=== PATIENT | male | born 1960 | race Two or more races ===

== ENCOUNTER 2024-11-09 15:23 | Emergency (ER) | payer OTHER ==
[~2024-11-09] VITALS: Ht 165.1 cm; Wt 70.8 kg
[2024-11-09 16:37] VITALS: BP 137/80; PULSE 94; RESP 18; TEMP 98.9; O2SAT 96
--- NOTE | 2024-11-09 16:39 | ED.PDOC ---
Musculoskeletal HPI Comments THIS IS A 64 YEAR-OLD MALE WHO PRESENTS TO THE ED VIA WHEELCHAIR WITH A CHIEF COMPLAINT OF LOWER BACK PAIN THAT RADIATES DOWN BILATERAL LEGS. PATIENT STATES HE HAS A HISTORY OF CHRONIC LOWER BACK PAIN AND NOTES IT HAS BEEN WORSE OVER THE PAST 2 DAYS. PATIENT REPORTS HIS PAIN RADIATES DOWN HIS BILATERAL LEGS AND NOTES HIS RIGHT LEG IS WORSE THAN HIS LEFT. PATIENT DENIES SADDLE ANESTHESIA, URINARY INCONTINENCE, BOWEL INCONTINENCE, FURTHER SYMPTOMS OF HEADACHE, N/V, FEVER, CHILLS, OR WEAKNESS. PATIENT IS ALERT, ORIENTED X 4, AND HAS STEADY GAIT. Chief Complaint: Lower Extremity Time Seen by MD: 16:16 Primary Care Provider: CHRISTEL Reviewed Notes: Nurses Notes, Medications, Allergies Allergies: Coded Allergies: NO KNOWN ALLERGIES (Unverified , 10/22/11) Home Meds Active Scripts Tramadol HCl (Tramadol HCl) 50 Mg Tab, 50 MG PO TID, #20 TAB Prov:MARLEEN RODRIUGEZ 11/09/24 Information Source: Patient Mode of Arrival: Ambulatory Location: Bilateral Extremity Location: Back, Leg Timing: Days Prehospital treatment: None Severity: Moderate Able to Move Extremity: Yes Bear Weight: Fully Pain: Moderate Onset of Symptoms: Spontaneous Symptoms: Pain Associated signs and symptoms: Back pain, Other (BILATERAL LEG PAIN, TINGLING SENSATION ) Past Medical History PAST MEDICAL HISTORY: DM, HTN Past Medical History (Other): CHRONIC LOWER BACK PAIN Surgical History: Denies all surgeries Family History Family History: Reviewed,noncontributory to illness, Unknown Social History Smoker: Cigarettes Alcohol: Occasionally Drugs: Marijuana Lives In: Home Constitutional: denies: chills, diaphoresis, fatigue, fever, malaise, sweats, weakness, others EENTM: denies: blurred vision, double vision, ear bleeding, ear discharge, ear drainage, ear pain, ear ringing, eye pain, eye redness, hearing loss, mouth pain, mouth swelling, nasal discharge, nose bleeding, nose congestion, nose pain, photophobia, tearing, throat pain, throat swelling, voice changes, others Respiratory: denies: cough, hemoptysis, orthopnea, SOB at rest, shortness of breath, SOB with excertion, stridor, wheezing, others Cardiovascular: denies: chest pain, dizzy spells, diaphoresis, Dyspnea on exertion, edema, irregular heart beat, left arm pain, lightheadedness, palpitations, PND, syncope, others Gastrointestinal: denies: abdomen distended, abdominal pain, blood streaked bowels, constipated, diarrhea, dysphagia, difficulty swallowing, hematemesis, melena, nausea, poor appetite, poor fluid intake, rectal bleeding, rectal pain, vomiting, others Genitourinary: denies: burning, dysuria, flank pain, frequency, hematuria, incontinence, penile discharge, penile sore, pain, testicle pain, testicle swelling, urgency, others Neurological: reports: others (BILATERAL LEG TINGLING AND BURNING SENSATION); denies: dizziness, fainting, headache, left sided numbness, left sided weakness, numbness, paresthesia, pre-existing deficit, right sided numbness, right sided weakness, seizure, speech problems, tingling, tremors, weakness Musculoskeletal: reports: back pain, muscle pain; denies: gout, joint pain, joint swelling, muscle stiffness, neck pain, others Integumetry: denies: bruises, change in color, change in hair/nails, dryness, laceration, lesions, lumps, rash, wounds, others Allergic/Immunocompromised: denies: Difficulty Healing, Frequent Infections, Hives, Itching, others Hematologic/Lymphatic: denies: anemia, blood clots, easy bleeding, easy bruising, swollen glands, others Endocrine: denies: excessive hunger, excessive sweating, excessive thirst, excessive urination, flushing, intolerance to cold, intolerance to heat, unexplained weight gain, unexplained weight loss, others Psychiatric: denies: anxiety, bipolar disorder, depression, hopeless, panic disorder, schizophrenia, sleepless, suicidal, others All Other Systems: Reviewed and Negative Physical Exam General Appearance: No Apparent Distress, Normal HEENT: Normal ENT Inspection, PERRL/EOMI, Pharynx Normal, TMs Normal Neck: Full Range of Motion, Non-Tender, Normal, Normal Inspection Respiratory: Chest Non-Tender, Lungs Clear, No Accessory Muscle Use, No Respiratory Distress, Normal Breath Sounds Cardiovascular: No Edema, No JVD, No Murmur, No Gallop, Normal Peripheral Pulses, Regular Rate/Rhythm Breast Exam: Deferred Gastrointestinal: No Organomegaly, Non Tender, No Pulsatile Mass, Normal Bowel Sounds, Soft Genitalia: Deferred Pelvic: Deferred Rectal: Deferred Extremities: No calf tenderness, Normal capillary refill, Normal inspection, Normal range of motion, Non-tender, No pedal edema, Other (NO LOWER EXTREMITY REDNESS, SWELLING AND DVT SIGNS. ) Musculoskeletal : Location: Bilateral Extremity Location: Back, Leg Apperance: Tenderness (ON LOWER BACK, NO BONY TENDERNESS, SWELLING AND DEFORMITY OF LOWER BACK. ) Neurologic: Alert, manager behavior II-XII nml as Tested, No Motor Deficits, Normal Affect, Normal Mood, No Sensory Deficits Cerebellar Function: Normal Reflexes: Normal Skin: Dry, Normal Color, Warm Peripheral Pulses: 2+ carotid (R), 2+ carotid (L), 2+ dorsalis pedis (R), 2+ dorsalis pedis (L) Lymphatic: No Adenopathy Was a procedure done? Was a procedure done?: No Differential Diagnosis EXT Differential Diagnosis: Fracture, Sprain, Strain, Arthritis, Other (SCIATICA ) X-Ray, Labs, Meds, VS Vital Signs Date Time Temp Pulse Resp B/P (MAP) Pulse Ox O2 Delivery O2 Flow Rate FiO2 11/09/24 16:37 94 18 96 Room Air 11/09/24 16:37 98.9 94 18 137/80 (99) 96 98.9 11/09/24 15:25 98.5 94 15 112/69 96 98.5 Current Medications Medications (Trade) Dose Ordered Sig/Lucy Route Start Time Stop Time Status Last Admin Acetaminophen/ Hydrocodone Bitart (Fontana 10/325MG Tab) 1 tab ONCE ONCE PO 11/09/24 17:00 11/09/24 17:01 DC 11/09/24 16:54 [place] [id number] Ph: [phone] DIAGNOSTIC IMAGING Diagnostic Imaging Report : [id number] Signed PATIENT: RIO HIGGINS ACCT: [id number] UNIT: [id number] : 1960 LOC: ER ROOM / BED: / AGE / SEX: 64 / M ADM STATUS: REG ER SERVICE [id number] ORDERING PHYSICIAN: MARLEEN RODRIGUEZ PROCEDURE(s): LUMB2 - LUMBAR SPINE 3 VIEW REASON: LOWER BACK PAIN TO LEGS ORDER NUMBER(s): [id number], ACCESSION NUMBER(s): [id number] INDICATION: LOWER BACK PAIN TO LEGS TECHNIQUE: 2 views of the lumbar spine were obtained. COMPARISON: None FINDINGS: There are no acute fractures or subluxations. Degenerative disc space narrowing at L5-S1. Possible neural foraminal stenosis at L4-L5 and L5-S1. Vascular calcifications of the aorta. Moderate to large volume colonic stool. IMPRESSION: No acute fracture or subluxation. ATED BY: GALILEO HERRERA MD DICTATED DATE/TIME: 11/09/241711 SIGNED BY: GALILEO HERRERA MD SIGNED DATE/TIME: 11/09/241711 CC: X-Ray, Labs, Meds, VS Comment EXTERNAL MEDICAL RECORDS REVIEWED: [NONE] INDEPENDENT HISTORIANS: [NONE] SOCIAL DETERMINANTS OF HEALTH: [NONE] LABS ORDERED: NONE REVIEWED AND INTERPRETED RESULTS: NONE IMAGING ORDERED: LUMBAR SPINE 3V XRAY TREATMENTS ORDERED: NORCO 10/325MG PROCEDURES PERFORMED: NONE CRITICAL CARE TIME: NONE I HAVE DISCUSSED THE PATIENT WITH THE ATTENDING PHYSICIAN, DR. GARCIA, AND HE AGREES WITH THE PATIENT'S PLAN OF CARE AND DISPOSITION. BASED ON HISTORY OF PRESENT ILLNESS, AND PHYSICAL EXAM, PATIENT WILL BE DISCHARGED HOME. DISCUSSED PLAN FOR DISCHARGE HOME WITH RX TRAMADOL HCL 50MG. MEDICATION WARNINGS GIVEN. SHARED DECISION MAKING: DISCUSSED WITH PATIENT THAT THEIR WORKUP WAS NORMAL. PATIENT INSTRUCTED TO FOLLOW UP WITH PRIMARY CARE PROVIDER IN 1-2 DAYS FOR RE- EVALUATION OF SYMPTOMS. PATIENT VERBALIZES UNDERSTANDING TO RETURN TO ED FOR NEW OR WORSENING SYMPTOMS OR IF FOLLOW UP WITH PCP CANNOT BE OBTAINED. PATIENT FEELS COMFORTABLE GOING HOME AT THIS TIME. ALL QUESTIONS ADDRESSED AT TIME OF DISCHARGE. Images Reviewed?: Images reviewed and evaluated by me Time of 1ST Reevaluation: 16:36 Reevaluation 1ST: Improved Patient Education/Counseling: Diagnosis, Treatment, Need For Follow Up Family Education/Counseling: Diagnosis, Need For Follow Up Medical Screening: No EMC Exist At This Time Departure 1 Departure Time of Disposition: 17:21 Impression: Primary Impression: Degenerative disc disease at L5-S1 level Additional Impression: Lumbar radiculopathy Disposition: 01 HOME / SELF CARE / HOMELESS Condition: Stable Additional Instructions: FOLLOW-UP WITH PCP IN 1 TO 2 DAYS. TAKE MEDICATIONS PRESCRIBED. RETURN TO ED FOR ANY NEW OR WORSENING SYMPTOMS. e-Prescriptions Tramadol HCl (Tramadol HCl) 50 Mg Tab 50 MG PO TID, #20 TAB Prov: MARLEEN RODRIGUEZ 11/09/24 Discharged With: Self, Relative Critical Care Note Critical Care Time?: No Stability Stability form required: No Heart Score Heart Score: Heart Score Response (Comments) Value History N/A 0 EKG N/A 0 Age N/A 0 Risk Factors N/A 0 Troponin N/A 0 Total 0 I personally scribed for MARLEEN RODRIGUEZ ([email or web address]) on 11/09/24 at 16:39. Electro nically submitted by Jeana Khan ([email or web address]). I personally scribed for MARLEEN RODRIGUEZ ([email or web address]) on 11/09/24 at 16:45. Electr onically submitted by Jeana Khan ([email or web address]). I personally scribed for MARLEEN RODRIGUEZ ([email or web address]) on 11/09/24 at 16:51. Elect ronically submitted by Jeana Khan ([email or web address]). I personally scribed for MARLEEN RODRIGUEZ ([email or web address]) on 11/09/24 at 17:15. Elec tronically submitted by Jeana Khan ([email or web address]). I personally scribed for MARLEEN RODRIGUEZ ([email or web address]) on 11/09/24 at 17:22. Jodee ctronically submitted by Jeana Khan ([email or web address]). MARLEEN RODRIGUEZ Nov 09, 2024 16:39
[2024-11-09] MEDS: HYDROcodone-ACET 10/325MG TAB PO ONE (16:54)
--- NOTE | 2024-11-09 17:14 | DVH ---
INDICATION: LOWER BACK PAIN TO LEGS TECHNIQUE: 2 views of the lumbar spine were obtained. COMPARISON: None FINDINGS: There are no acute fractures or subluxations. Degenerative disc space narrowing at L5-S1. Possible neural foraminal stenosis at L4-L5 and L5-S1. Vascular calcifications of the aorta. Moderate to large volume colonic stool. IMPRESSION: No acute fracture or subluxation.
[2024-11-09] MEDS ORDERED: TRAM-626 PO (17:16)
== END 2024-11-09 17:43 | disposition home or self-care (01) ==
LOC: ER 15:23
DX: M51.17 Intervertebral disc disorders with radiculopathy, lumbosacral region (principal); F17.210 Nicotine dependence, cigarettes, uncomplicated; F12.90 Cannabis use, unspecified, uncomplicated; F10.90 Alcohol use, unspecified, uncomplicated; I10 Essential (primary) hypertension; E11.9 Type 2 diabetes mellitus without complications; Z79.899 Other long term (current) drug therapy; Y90.9 Presence of alcohol in blood, level not specified
CPT/HCPCS: 72100